=== PATIENT | female | born 1960 | race Caucasian/White ===

== ENCOUNTER → 2017-11-13 | Outpatient (CLI) | payer BC ==
[~2017-11-13] MED LIST: FERROUS SU325 MG/TAB PO; FOLIC ACID0.4 MG PO; MULTIPLE VITAMI1 CAP PO; VITAMIN C500 MG PO; ZESTRIL 5MG5 MG PO
[2017-11-13 13:22] LABS: HIV 1/2 Antibodies Non-Reactive; HIV-1p24 Antigen Non-Reactive
== END ==
LOC: COL.LAB 11:36
PROVIDERS: Orthopaedic Surgery
DX: Z01.812 Encounter for preprocedural laboratory examination (principal); M17.12 Unilateral primary osteoarthritis, left knee